=== PATIENT | female | born 1935 | race Two or more races ===

== ENCOUNTER 2019-07-24 22:43 | Inpatient (IN) | payer OTHER ==
[~2019-07-24] VITALS: Ht 170.2 cm; Wt 37.2 kg
[~2019-07-24 22:43] MED LIST: GLUCOPHAGE XR500 MG; HUMULIN R500 U/ML; HYZAAR 100-251 UDTAB; NEURONTIN250 MG/5 M; ZOCOR20 MG
[2019-07-24] MEDS ORDERED: NORVASC10 MG (23:01)
--- NOTE | 2019-07-24 23:15 | NUR ---
PACIENTE ALERTA Y ORIENTADA EN CASANDRA DARY ESFERAS QUIEN REFIERE MAREOS, DOLOR ABDOMINAL Y DOLOR EN EL PECHO DESDE AGGIE. EN EL MICAELA DE HOY REFIERE NO PEREZ PRESENTADO DOLOR EN EL PECHO.
--- NOTE | 2019-07-24 23:43 | NUR ---
SE ORIENTA SOBRE EL TX. REFIERE ENTENDER. SE EXTRAEN MUESTRAS DE AISHA BAJO MEDIDAS ASEPTICAS SE ROTULAN Y ENVIAN AL LABORATORIO.
--- NOTE | 2019-07-25 03:44 | NUR ---
SE EXTRAE 2DO SED DE TROPONINA BAJO MEDIDAS ASEPTICAS ROTULADA Y ENVIADA AL LABORATORIO. SE ADMINISTRA MEDICAMENTO NAVEED ORDEN MEDICA. 2DO EKG REALIZADO Y EVALUADO POR EL DR. ANG
--- NOTE | 2019-07-25 07:27 | NUR ---
SE RECIBE PTE DEL TURNO ANTERIOR EN ALEXA CON BARANDAS ELEVADAS CON IVFS PATENTE, LALI DE EDEMA Y ERITEMA , CONECTADA A MONITOR CARDIACO. ALERTA, ORIENTADA POR DARY. ACOMPANADA POR FAMILIAR, NO PEREZ PRESENTADO DOLOR DE PECHO AL MOMENTO. SE MANTIENE EN OBSERVACION Y PENDIENTE A CONSULTA CON LA DRA. BHARDWAJ.
== END 2019-07-27 12:07 | disposition designated cancer center or children's hospital (05) | DRG 311 ==
LOC: ER 22:43 → MEDJ 07-25 09:53
PROVIDERS: ADMIT Internal Medicine
PROC: B246ZZZ Ultrasonography of Right and Left Heart (ICD-10-PCS; principal; 2019-07-25)
PROC: BW28ZZZ Computerized Tomography (CT Scan) of Head (ICD-10-PCS; 2019-07-25)
PROC: 4A12X4Z Monitoring of Cardiac Electrical Activity, External Approach (ICD-10-PCS; 2019-07-25)
DX: I20.0 Unstable angina (principal); I50.21 Acute systolic (congestive) heart failure; H33.8 Other retinal detachments; I11.0 Hypertensive heart disease with heart failure; I08.3 Combined rheumatic disorders of mitral, aortic and tricuspid valves; E03.8 Other specified hypothyroidism; E11.65 Type 2 diabetes mellitus with hyperglycemia; R42 Dizziness and giddiness; Z79.4 Long term (current) use of insulin

== ENCOUNTER 2020-10-01 13:28 | Inpatient (IN) | payer OTHER ==
[~2020-10-01] VITALS: Ht 170.2 cm; Wt 79.8 kg
[~2020-10-01 13:28] MED LIST changes: +NORVASC10 MG
[2020-10-01] MEDS ORDERED: SYNTHROID88 MCG PO (13:40)
--- NOTE | 2020-10-01 13:40 | NUR ---
PACIENTE ALERTA Y ORIENTADA EN CASANDRA DARY ESFERAS, REFIERE MAREOS DESDE HACE DARY PEACE. PACIENTE REFIERE QUE CUANDO REALIZA MOVIMIENTOS BRUSCO EL MAREO EMPEORA.
--- NOTE | 2020-10-01 15:48 | NUR ---
BLOOD SAMPLES ARE TAKEN FROM PATIENT'S LEFT HAND IN ORDER TO COMPLETE LAB ORDERS.
--- NOTE | 2020-10-01 17:56 | NUR ---
5:13PM SE EJECUTA ORDEN MEIDCA EN [place] TOTALIDAD. PACIENTE CON ORDEN DE REQUISION DE 2 UNIDADES DE AISHA FRACCIONADAS EN HOLD. SE REALIZA LA ORDEN PARA BANCO DE AISHA. SE REALIZO LLAMADA A LAS 5 15:13PM PARA NOTIFICAR A SERVICIOS MUTU[employer], SE LOGRA CONTACTO CON SR. KATE CUAL NOTIFICA REALIZA JAMISON DE TERCER TUBO YA QUE PACIENTE NO CUENTRA CON EXPEDIENTE PREVIO EN BANCO. EL MISMO ES TOMADO Y ENVIADO CON HOJA DE REQUISICON Y SE MARCAR TIPO Y CARLO. SR. KATE NOTIFICA QUE ENVIARA A PESONAL PARA RECOGER LOS TUBOS PILOTOS. 5:55PM SE REALIZA LLAMADA TELEFONI A SERVICIOS MUTUOS Y SE LOGRA CONTACTO CON SRRhonda KATE A CUAL SE LE NOTIFICA QUE PACIENTE TIENE NUEVA ORDEN DE TRANFUNDIR LAS UNIDARDES PEDIDAS EN HOLD [address] K[address] REFIERE TENER CONOCIMIENTO.
--- NOTE | 2020-10-01 18:30 | NUR ---
5:40PM SE REALIZA ENTREGA DE TUBOS PILOTOS A SRA. MARKHAM DE LABORATORIO Y SE LE NOTIFICA QUE SE REALIZO LLAMADA A BANCO DE AISHA QUIENES ENVIARAN UN PERSONAL PARA RECOGER LA MUESTRA.
== END 2020-10-04 11:49 | disposition home or self-care (01) | DRG 812 ==
LOC: ER 13:28 → SURG 21:42
PROVIDERS: ADMIT Internal Medicine; ATTEND Internal Medicine
PROC: 30233N1 Transfusion of Nonautologous Red Blood Cells into Peripheral Vein, Percutaneous Approach (ICD-10-PCS; principal; 2020-10-02)
DX: D50.8 Other iron deficiency anemias (principal); I10 Essential (primary) hypertension; E11.65 Type 2 diabetes mellitus with hyperglycemia; Z20.822 Contact with and (suspected) exposure to COVID-19

== ENCOUNTER → 2021-03-31 | Outpatient (CLI) | payer OTHER ==
[~2021-03-31] MED LIST changes: +SYNTHROID88 MCG PO
== END | disposition home or self-care (01) ==
LOC: NUCLEAR 10:00
PROVIDERS: ATTEND Surgery
DX: I73.9 Peripheral vascular disease, unspecified (principal)

== ENCOUNTER 2024-02-16 14:58 | Inpatient (IN) | payer OTHER ==
[~2024-02-16] VITALS: Ht 165.1 cm; Wt 76.7 kg
[~2024-02-16 14:58] MED LIST changes: +PEPCID AC20 MG PO
[2024-02-16] MEDS ORDERED: ONDANSETRON HCL 2 MG/ML VIAL IV ONE (16:00)
[2024-02-16] MEDS ORDERED: FAMOTIDINE/PF 20 MG/2 ML VIAL IV ONE (16:00)
[2024-02-16] MEDS ORDERED: 0.9 % SODIUM CHLORIDE 500 ML IV ONE (16:15)
[2024-02-16] MEDS ORDERED: DEXTROSE 50 % IN WATER 0.5 G/ML VIAL IV ONE ×2 (16:15→22:00)
[2024-02-16 16:27] LABS: HEMATOCRIT 37.2 % (36.0-45.00); MEAN CELL VOLUME 97.2 fL (80.00-100.00); MEAN CORPUSCULAR HEMOGLOBIN 34.1 pg (27.00-32.0); MEAN CORPUSCULAR HGB CONC 35.1 g/dl (32.0-36.0); PLATELET COUNT 213 K/uL (150-450); RED BLOOD COUNT 3.82 M/uL (4.00-6.00); RED CELL DISTRIBUTION WIDTH 18.3 % (11.5-14.5)
[2024-02-16 16:54] LABS: URINE APPEARANCE Clear; URINE BILIRRUBIN Negative (NEGATIVE); URINE BLOOD Negative; URINE COLOR Yellow; URINE GLUCOSE Negative (NEGATIVE); URINE KETONE Negative (NEGATIVE); URINE LEUKOCYTE Negative; URINE NITRATE Negative; URINE PROTEIN Negative (NEGATIVE); URINE UROBILINOGEN 0.2 E.U./dl
[2024-02-16 16:55] LABS: URINE BACTERIA 120.6 uL (0.0-1933); URINE EPITHELIAL CELLS 2.1 uL (0.0-38.8); URINE RBC 2.5 uL (0.0-20.8)
[2024-02-16 17:00] LABS: URINE WBC 0.4 uL (0.0-23.2)
[2024-02-16 17:06] LABS: ALBUMIN 3.8 gm/dL (3.4-5.0); BILIRUBIN TOTAL 0.44 mg/dL (0.3-1.2); CALCIUM 9.7 mg/dL (8.5-10.1); CREATININE SERUM 0.95 mg/dL (0.55-1.02); GFR 55.64; GLOBULINA 4.4 G/DL (2.4-3.5); POTASSIUM 3.4 mEq/L (3.5-5.1); TOTAL PROTEIN 8.2 gm/dL (6.4-8.2)
[2024-02-16] MEDS ORDERED: 0.9 % SODIUM CHLORIDE 1,000 ML IV SCH (22:00)
[2024-02-16] MEDS ORDERED: INSULIN LISPRO 1,000 UNIT/10 ML UNITS SUBCUTANEO PRN (22:00)
[2024-02-16] MEDS ORDERED: DEXTROSE 50 % IN WATER 0.5 G/ML DISP.SYRIN IV PRN (22:00)
[2024-02-16] MEDS ORDERED: FAMOTIDINE/PF 20 MG in 0.9 % SODIUM CHLORIDE 100 ML IV SCH (22:20)
[2024-02-16] MEDS ORDERED: ENALAPRILAT DIHYDRATE 1.25 MG/ML VIAL IV PRN (22:30)
[2024-02-16] MEDS ORDERED: ONDANSETRON HCL 4 MG in DEXTROSE 5 % IN WATER 50 ML IV PRN (22:30)
[2024-02-17 00:15] VITALS: BP 182/76; O2SAT 96
[2024-02-17 00:23] LABS: INR 1.15; PARTIAL THROMBOPLASTIN TIME 29.9 SECONDS (22.0-34.0); PROTHROMBIN TIME 12.4 SECONDS (9.0-11.5)
[2024-02-17 00:24] LABS: CREATININE SERUM 0.77 mg/dL (0.55-1.02); GFR 70.91; POTASSIUM 4.22 mEq/L (3.5-5.1)
[2024-02-17 02:16] VITALS: BP 182/76
[2024-02-17 02:49] VITALS: BP 172/74; O2SAT 96
[2024-02-17] MEDS ORDERED: LEVOTHYROXINE SODIUM 88 MCG TABLET PO SCH (06:00)
[2024-02-17 08:06] VITALS: BP 169/66
[2024-02-17] MEDS ORDERED: LOSARTAN POTASSIUM 50 MG TABLET PO NR (13:08)
[2024-02-17 16:58] VITALS: BP 172/86
[2024-02-18 00:41] VITALS: BP 145/63; O2SAT 98
[2024-02-18] MEDS ORDERED: INSULIN LISPRO 1,000 UNIT/10 ML UNITS SUBCUTANEO SCH ×2 (08:00→12:00)
[2024-02-18 08:01] VITALS: BP 160/75
[2024-02-18] MEDS ORDERED: LOSARTAN POTASSIUM 50 MG TABLET PO SCH (09:00)
[2024-02-18] MEDS ORDERED: LOSARTAN POTASSIUM 100 MG TABLET PO SCH (09:00)
[2024-02-18] MEDS ORDERED: INSULIN GLARGINE,HUM.REC.ANLOG 1,000 UNITS/10 ML UNITS SUBCUTANEO SCH (09:00)
[2024-02-18 15:35] VITALS: BP 180/67; O2SAT 98
[2024-02-19 00:56] VITALS: BP 131/66; O2SAT 96
[2024-02-19 06:09] VITALS: BP 150/78
[2024-02-19] MEDS ORDERED: INSULIN LISPRO 1,000 UNIT/10 ML UNITS SUBCUTANEO SCH (08:00)
[2024-02-19 08:20] VITALS: BP 161/65; O2SAT 97
[2024-02-19] MEDS ORDERED: INSULIN GLARGINE,HUM.REC.ANLOG 1,000 UNITS/10 ML UNITS SUBCUTANEO SCH (09:00)
== END 2024-02-19 09:07 | disposition home or self-care (01) | DRG 639 ==
LOC: ER 15:00 → MEDI 22:27
PROVIDERS: General Practice; Nurse Practitioner Family; ADMIT Internal Medicine; ATTEND Internal Medicine
PROC: BW21YZZ Computerized Tomography (CT Scan) of Abdomen and Pelvis using Other Contrast (ICD-10-PCS; principal; 2024-02-16)
PROC: B020ZZZ Computerized Tomography (CT Scan) of Brain (ICD-10-PCS; 2024-02-16)
DX: E11.649 Type 2 diabetes mellitus with hypoglycemia without coma (principal); R55 Syncope and collapse; I10 Essential (primary) hypertension; E03.9 Hypothyroidism, unspecified; Z79.84 Long term (current) use of oral hypoglycemic drugs; Z79.4 Long term (current) use of insulin